=== PATIENT | female | born 1985 | race American Indian/Alaskan Native ===

== ENCOUNTER 2022-03-09 21:48 | Emergency (ER) | payer MEDICAID ==
[2022-03-10] MEDS ORDERED: hydrALAZINE 20 MG/1 ML INJ IV ONE (02:22)
--- NOTE | 2022-03-10 03:00 | Emergency Department Report ---
ED General Adult HPI - General Chief complaint: High BP Stated complaint: BLOOD PRESSURE Source: patient Mode of arrival: Ambulatory Limitations: No Limitations - History of Present Illness Initial comments: 37-year-old male presents to the ED out of hypertension medication x6 days. States that she has a doctor appointment on Saturday , March 13, 2022 with her doctor with a primary care doctor. Patient denies any shortness of breath ,headache , blurred vision or chest at present time. Patient is alert and oriented oriented x3. No acute distress noted. No ill appearance noted. Patient do not wish to have any lab work or any diagnostic testing done. - Related Data Previous Rx's Medication Instructions Recorded Last Taken Type NIFEdipine [Nifedipine ER] 60 mg PO QDAY 30 Days #30 tab 03/10/22 Unknown Rx Spironolactone [Aldactone] 25 mg PO QDAY 30 Days #30 tablet 03/10/22 Unknown Rx Allergies Allergy/AdvReac Type Severity Reaction Status Date / Time No Known Allergies Allergy Verified 03/10/22 02:40 ED Review of Systems ROS: Stated complaint: BLOOD PRESSURE Other details as noted in HPI Constitutional: denies: chills, fever Eyes: denies: eye pain, eye discharge, vision change ENT: denies: ear pain, throat pain Respiratory: denies: cough, shortness of breath, wheezing Cardiovascular: denies: chest pain, palpitations Endocrine: no symptoms reported Gastrointestinal: denies: abdominal pain, nausea, diarrhea Genitourinary: denies: urgency, dysuria, discharge Musculoskeletal: denies: back pain, joint swelling, arthralgia Skin: denies: rash, lesions Neurological: denies: headache, weakness, paresthesias Psychiatric: denies: anxiety, depression Hematological/Lymphatic: denies: easy bleeding, easy bruising ED Past Medical Hx - Medications Home Medications: Home Medications Medication Instructions Recorded Confirmed Last Taken Type NIFEdipine [Nifedipine ER] 60 mg PO QDAY 30 Days #30 tab 03/10/22 Unknown Rx Spironolactone [Aldactone] 25 mg PO QDAY 30 Days #30 tablet 03/10/22 Unknown Rx ED Physical Exam - General Limitations: No Limitations General appearance: alert, in no apparent distress - Head Head exam: Present: atraumatic, normocephalic - Eye Eye exam: Present: normal appearance - ENT ENT exam: Present: mucous membranes moist - Neck Neck exam: Present: normal inspection - Respiratory Respiratory exam: Present: normal lung sounds bilaterally. Absent: respiratory distress - Cardiovascular Cardiovascular Exam: Present: regular rate, normal rhythm. Absent: systolic murmur, diastolic murmur, rubs, gallop - GI/Abdominal GI/Abdominal exam: Present: soft, normal bowel sounds - Extremities Exam Extremities exam: Present: normal inspection - Back Exam Back exam: Present: normal inspection - Neurological Exam Neurological exam: Present: alert, oriented X3 - Psychiatric Psychiatric exam: Present: normal affect, normal mood - Skin Skin exam: Present: warm, dry, intact, normal color. Absent: rash ED Course Vital Signs 03/09/22 03/10/22 03/10/22 21:53 02:03 02:16 Temperature 98.6 F Pulse Rate 90 Respiratory 18 Rate Blood Pressure 226/146 218/144 Blood Pressure [Right] O2 Sat by Pulse 98 99 98 Oximetry 03/10/22 03/10/22 03/10/22 02:30 02:34 02:46 Temperature Pulse Rate 76 Respiratory Rate Blood Pressure 197/127 197/127 197/127 Blood Pressure [Right] O2 Sat by Pulse 99 100 Oximetry 03/10/22 03:01 Temperature Pulse Rate 70 Respiratory 14 Rate Blood Pressure Blood Pressure 174/100 [Right] O2 Sat by Pulse 100 Oximetry ED Medical Decision Making - Medical Decision Making 37-year-old male presents to the ED out of hypertension medication x6 days. States that she has a doctor appointment on Saturday with her d octor with a primary care doctor. Patient denies any shortness of breath ,headache , blurred vision or chest at present time. Patient is alert and oriented oriented x3. No acute distress noted. No ill appearance noted. Patient do not wish to have any lab work or any diagnostic testing done. Physical examination is unremarkable. Hydralazine 10 mg given IV. BP at time of discharge 168/98. Rechecked the patient is resting quietly quietly and comfortable and feeling better. I discussed the results of diagnostic study, my clinical impression and the plan for further treatment with the patient. Patient agrees with plan and discharge at this present time. All question addressed. I have given the patient instruction regarding a diagnosis ,expectation ,follow- up and return precaution. I explained to the patient that emergent condition may arise and to return to the ED for new worsen and any new persisting condition. I have explained the importance of following up with the primary care physician or referral physician listed below has instructed. The patient verbalized understanding of discharge instruction. Critical care attestation.: If time is entered above; I have spent that time in minutes in the direct care of this critically ill patient, excluding procedure time. ED Disposition Clinical Impression: Hypertension Qualifiers: Hypertension type: primary hypertension Qualified Code(s): I10 - Essential (primary) hypertension Disposition: HOME / SELF CARE / HOMELESS Is pt being admited?: No Does the pt Need Aspirin: No Condition: Stable Instructions: Hypertension (ED), Hypertension, Adult, [id number] Additional Instructions: Take medication as prescribed Return to the ED for any worsening symptom keep appointment with [facility] Prescriptions: Spironolactone [Aldactone] 25 mg PO QDAY 30 Days #30 tablet NIFEdipine [Nifedipine ER] 60 mg PO QDAY 30 Days #30 tab Referrals: BUCK ALBARRAN MD [Staff Physician] - 3-5 Days Forms: Work/School Release Form(ED) Time of Disposition: 03:28
[2022-03-10 03:54] VITALS: BP 170/74
== END 2022-03-10 03:52 | disposition home or self-care (01) ==
LOC: ED 21:48
DX: I10 Essential (primary) hypertension (principal)
CPT/HCPCS: 96374; 99282; J0360